=== PATIENT | female | born 1930 | race Caucasian/White ===

== ENCOUNTER 2017-01-16 20:33 | Observation (INO) | payer MEDICARE, BC ==
[2017-01-16] MEDS ORDERED: Sodium Chloride 0.9% 1,000 ML IV SCH (23:00)
--- NOTE | 2017-01-16 23:48 | EDM.PDOC ---
ED HPI GENERAL MEDICAL PROBLEM - General Chief Complaint: General Stated Complaint: NAUSEA Time Seen by Provider: 01/16/17 21:20 Source of Information: Reports: Patient - History of Present Illness INITIAL COMMENTS - FREE TEXT/NARRATIVE: This is an 86yo F with concerns of profuse diarrhea the past day. She states she has gone to the bathroom more than 10 times. Patient states she feels exhausted and dehydrated. Patient denies having these symptoms in the past. Patient denies other health concerns or recent issues with her health. Onset: Sudden Duration: Day(s): (1), Improving Location: Reports: Abdomen Severity: Moderate Improves with: Reports: None Worsens with: Reports: None Associated Symptoms: Reports: Loss of Appetite, Nausea/Vomiting - Related Data Allergies Allergy/AdvReac Type Severity Reaction Status Date / Time amoxicillin [From Augmentin] Allergy Hallucinati Verified 01/16/17 22:25 ons clavulanic acid Allergy Hallucinati Verified 01/16/17 22:25 [From Augmentin] ons levofloxacin Allergy Hives Verified 01/16/17 22:25 morphine Allergy Hives Verified 01/16/17 22:25 Penicillins Allergy Hives Verified 01/16/17 22:25 Sulfa (Sulfonamide Allergy Hives Verified 01/16/17 22:25 Antibiotics) Home Meds: Home Meds Diltiazem HCl [Diltiazem 24Hr Cd] 120 mg PO DAILY 04/22/14 [History] Docusate Sodium 200 mg PO DAILY 04/22/14 [History] Flecainide [Tambocor] 75 mg PO Q12H 04/22/14 [History] Levothyroxine Sodium [Synthroid] 50 mcg PO ACBRK 04/22/14 [History] Lisinopril/Hydrochlorothiazide [Zestoretic 20-12.5 mg Tablet] 1 each PO DAILY [History] Warfarin [Coumadin] 6 mg PO DAILY 04/22/14 [History] busPIRone [Buspar] 5 mg PO DAILY 04/22/14 [History] Fluticasone/Vilanterol [Breo Ellipta 200-25 Mcg INH] 1 each IH DAILY 01/16/17 [ History] Social & Family History - Tobacco Use Smoking Status *Q: Former Smoker Years of Tobacco use: 20 Second Hand Smoke Exposure: No - Alcohol Use Days Per Week of Alcohol Use: 0 - Recreational Drug Use Recreational Drug Use: No ED ROS GENERAL - Review of Systems Review Of Systems: See Below Constitutional: Reports: Decreased Appetite Respiratory: Reports: No Symptoms Cardiovascular: Reports: No Symptoms Endocrine: Reports: Fatigue GI/Abdominal: Reports: Diarrhea, Decreased Appetite, Nausea : Reports: No Symptoms Musculoskeletal: Reports: No Symptoms Skin: Reports: No Symptoms Neurological: Reports: Weakness Psychiatric: Reports: Anxiety ED EXAM, GENERAL - Physical Exam Exam: See Below Exam Limited By: No Limitations General Appearance: Alert, WD/WN, Anxious, Mild Distress, Moderate Distress Eye Exam: Bilateral Eye: EOMI Ears: Normal External Exam Nose: Normal Inspection Throat/Mouth: Normal Inspection, Normal Lips, Normal Oropharynx Head: Atraumatic, Normocephalic Neck: Normal Inspection Respiratory/Chest: No Respiratory Distress, Lungs Clear Cardiovascular: Normal Peripheral Pulses, Regular Rate, Rhythm Peripheral Pulses: 2+: Radial (L), Radial (R), Dorsalis Pedis (L), Dorsalis Pedis (R) GI/Abdominal: Abnormal Bowel Sounds (hyperactive) Extremities: Normal Inspection Neurological: Alert, Oriented Psychiatric: Anxious Skin Exam: Warm, Dry, Intact Course - Vital Signs Last Recorded V/S: Last Vital Signs Temp 36.6 C 01/16/17 22:25 Pulse 68 01/16/17 22:25 Resp 18 01/16/17 22:25 BP 143/53 H 01/16/17 22:25 Pulse Ox 94 L 01/16/17 22:25 - Orders/Labs/Meds Orders: Active Orders 24 hr Category Date Time Status Patient Status [ADT] Routine ADT 01/16/17 21:59 Active Oxygen Therapy [RC] PRN Care 01/16/17 21:59 Active Vital Signs [RC] Q4H Care 01/16/17 21:59 Active GI BACTERIAL PCR PANEL Stat Lab 01/16/17 21:30 Received Labs: Laboratory Tests 01/16/17 01/16/17 01/16/17 Range/Units 21:10 21:10 21:10 WBC 12.5 H D (4.0-11.0) K/uL RBC 4.35 (3.80-5.80) M/uL Hgb 14.1 D (11.5-16.5) g/dL Hct 42.7 D (37.0-47.0) % MCV 98 H (76-96) fL MCH 32.4 H (27.0-32.0) pg MCHC 33.0 (31.0-35.0) g/dL RDW 13.0 (11.0-16.0) % Plt Count 357 D (150-500) K/uL MPV 8.8 (6.0-10.0) fL Neut % (Auto) 76.1 H (45.0-70.0) % Lymph % (Auto) 13.4 L (20.0-40.0) % [place] % (Auto) 9.3 (3.0-10.0) % Eos % (Auto) 1.0 (1.0-5.0) % Baso % (Auto) 0.2 (0.0-0.5) % Neut # (Auto) 9.54 H (2.00-7.50) K/uL Lymph # (Auto) 1.68 (1.50-4.00) K/uL [place] # (Auto) 1.17 H (0.20-0.80) K/uL Eos # (Auto) 0.12 (0.04-0.40) K/uL Baso # (Auto) 0.03 (0.02-0.10) K/uL Sodium 135 L (136-145) mmol/L Potassium 4.7 D (3.5-5.1) mmol/L Chloride 99 (98-107) mmol/L Carbon Dioxide 27.0 (21.0-32.0) mmol/L Anion Gap 13.7 (5.0-15.0) mmol/L BUN 20 D (8-26) mg/dL Creatinine 0.90 D (0.55-1.02) mg/dL Est Cr Clr Drug Dosing TNP Estimated GFR (MDRD) 60 (>60) MLS/MIN BUN/Creatinine Ratio 22.2 (6-25) Glucose 104 H (74-100) mg/dL Calcium 9.9 (8.5-10.1) mg/dL Total Bilirubin 0.7 (0.0-1.0) mg/dL AST 26 (15-37) U/L ALT 19 (12-78) U/L Alkaline Phosphatase 107 (46-116) U/L Troponin I < 0.017 (0.000-0.060) ng/mL Total Protein 7.7 (6.4-8.2) g/dL Albumin 3.5 (3.4-5.0) g/dL Globulin 4.2 (2.2-4.2) g/dL Albumin/Globulin Ratio 0.8 (0.8-2.0) TSH, Ultra Sensitive 5.531 H (0.358-3.740) uIU/mL Urine Color Urine Appearance (CLEAR) Urine pH (5.0-8.0) Ur Specific [place] (1.003-1.030) Urine Protein (NEGATIVE) mg/dL Urine Glucose (UA) (NEGATIVE) mg/dL Urine Ketones (NEGATIVE) mg/dL Urine Occult Blood (NEGATIVE) Urine Nitrite (NEGATIVE) Urine Bilirubin (NEGATIVE) Urine Urobilinogen (0.2-1.0) E.U./dL Ur Leukocyte Esterase (NEGATIVE) Urine RBC /HPF Urine WBC /HPF Ur Epithelial Cells /HPF Urine Bacteria /HPF 01/16/17 Range/Units 21:30 WBC (4.0-11.0) K/uL RBC (3.80-5.80) M/uL Hgb (11.5-16.5) g/dL Hct (37.0-47.0) % MCV (76-96) fL MCH (27.0-32.0) pg MCHC (31.0-35.0) g/dL RDW (11.0-16.0) % Plt Count (150-500) K/uL MPV (6.0-10.0) fL Neut % (Auto) (45.0-70.0) % Lymph % (Auto) (20.0-40.0) % [place] % (Auto) (3.0-10.0) % Eos % (Auto) (1.0-5.0) % Baso % (Auto) (0.0-0.5) % Neut # (Auto) (2.00-7.50) K/uL Lymph # (Auto) (1.50-4.00) K/uL [place] # (Auto) (0.20-0.80) K/uL Eos # (Auto) (0.04-0.40) K/uL Baso # (Auto) (0.02-0.10) K/uL Sodium (136-145) mmol/L Potassium (3.5-5.1) mmol/L Chloride (98-107) mmol/L Carbon Dioxide (21.0-32.0) mmol/L Anion Gap (5.0-15.0) mmol/L BUN (8-26) mg/dL Creatinine (0.55-1.02) mg/dL Est Cr Clr Drug Dosing Estimated GFR (MDRD) (>60) MLS/MIN BUN/Creatinine Ratio (6-25) Glucose (74-100) mg/dL Calcium (8.5-10.1) mg/dL Total Bilirubin (0.0-1.0) mg/dL AST (15-37) U/L ALT (12-78) U/L Alkaline Phosphatase (46-116) U/L Troponin I (0.000-0.060) ng/mL Total Protein (6.4-8.2) g/dL Albumin (3.4-5.0) g/dL Globulin (2.2-4.2) g/dL Albumin/Globulin Ratio (0.8-2.0) TSH, Ultra Sensitive (0.358-3.740) uIU/mL Urine Color Yellow Urine Appearance Slightly cloudy (CLEAR) Urine pH 5.5 (5.0-8.0) Ur Specific [place] 1.025 (1.003-1.030) Urine Protein 30 H (NEGATIVE) mg/dL Urine Glucose (UA) Negative (NEGATIVE) mg/dL Urine Ketones Trace H (NEGATIVE) mg/dL Urine Occult Blood Small H (NEGATIVE) Urine Nitrite Negative (NEGATIVE) Urine Bilirubin Small H (NEGATIVE) Urine Urobilinogen 0.2 (0.2-1.0) E.U./dL Ur Leukocyte Esterase Small H (NEGATIVE) Urine RBC 5-10 H /HPF Urine WBC 10-20 H /HPF Ur Epithelial Cells Many /HPF Urine Bacteria Many H /HPF Departure - Departure Time of Disposition: 21:45 Disposition: Refer to Observation Condition: good Clinical Impression: Dehydration symptoms Diarrhea Qualifiers: Diarrhea type: presumed infectious Qualified Code(s): A09 - Infectious gastroenteritis and colitis, unspecified - Discharge Information - Problem List & Annotations (1) Dehydration symptoms SNOMED Code(s): 5220708 Code(s): R63.8 - OTHER SYMPTOMS AND SIGNS CONCERNING FOOD AND FLUID INTAKE Status: Acute Current Visit: Yes (2) Diarrhea SNOMED Code(s): 41780464 Code(s): R19.7 - DIARRHEA, UNSPECIFIED Status: Acute Current Visit: Yes Qualifiers: Diarrhea type: presumed infectious Qualified Code(s): A09 - Infectious gastroenteritis and colitis, unspecified - Problem List Review Problem List Initiated/Reviewed/Updated: Yes - My Orders Last 24 Hours: My Active Orders 01/16/17 21:30 GI BACTERIAL PCR PANEL Stat 01/16/17 21:59 Patient Status [ADT] Routine Oxygen Therapy [RC] PRN Vital Signs [RC] Q4H - Assessment/Plan Last 24 Hours: My Active Orders 01/16/17 21:30 GI BACTERIAL PCR PANEL Stat 01/16/17 21:59 Patient Status [ADT] Routine Oxygen Therapy [RC] PRN Vital Signs [RC] Q4H Plan: Patient placed in observation for fluid hydration. Patient counseled and agrees with plan. Discussed lab results and reassured. Patient has already felt improvement with minor fluid resuscitation.
[2017-01-17 05:38] VITALS: BP 137/63
--- NOTE | 2017-01-17 08:21 | PCM.DCSUM1 ---
Discharge Summary - Discharge Data Discharge Date: 01/17/17 Discharge Disposition: Home, Self-Care 01 Condition: Fair - Discharge Diagnosis/Problem(s) (1) Dehydration symptoms SNOMED Code(s): 0305877 ICD Code: R63.8 - OTHER SYMPTOMS AND SIGNS CONCERNING FOOD AND FLUID INTAKE Status: Acute Current Visit: Yes (2) Diarrhea SNOMED Code(s): 86160565 ICD Code: R19.7 - DIARRHEA, UNSPECIFIED Status: Acute Current Visit: Yes Qualifiers: Diarrhea type: presumed infectious Qualified Code(s): A09 - Infectious gastroenteritis and colitis, unspecified - Patient Instructions Diet: Usual Diet as Tolerated Activity: As Tolerated Driving: Do Not Drive - Discharge Plan Home Medications: Home Meds Diltiazem HCl [Diltiazem 24Hr Cd] 120 mg PO DAILY 04/22/14 [History] Docusate Sodium 200 mg PO DAILY 04/22/14 [History] Flecainide [Tambocor] 75 mg PO Q12H 04/22/14 [History] Levothyroxine Sodium [Synthroid] 50 mcg PO ACBRK 04/22/14 [History] Lisinopril/Hydrochlorothiazide [Zestoretic 20-12.5 mg Tablet] 1 each PO DAILY [History] Warfarin [Coumadin] 6 mg PO DAILY 04/22/14 [History] busPIRone [Buspar] 5 mg PO DAILY 04/22/14 [History] Fluticasone/Vilanterol [Breo Ellipta 200-25 Mcg INH] 1 each IH DAILY 01/16/17 [ History] Forms: ED Department Discharge Referrals: PCP,None [Primary Care Provider] - - Discharge Summary/Plan Comment Discharge Summary/Plan Comment: Patient counseled on follow up with PCP this week. Discussed close monitoring and f/u in ER or clinic if symptoms return. We will f/u stool studies and inform patient or send out results via mail. Patient to also f/u and call if she has not receive her stool results. - Patient Data Vitals - Most Recent: Last Vital Signs Temp 37.6 C 01/17/17 05:37 Pulse 67 01/17/17 05:37 Resp 18 01/17/17 05:37 BP 137/63 01/17/17 05:37 Pulse Ox 94 L 01/16/17 22:25 Weight - Most Recent: 47.854 kg I&O - Last 24 hours: Intake & Output 01/16/17 01/17/17 01/17/17 22:59 06:59 14:59 Intake Total 1175 Output Total 200 Balance 975 Med Orders - Current: Current Medications Discontinued Medications Sodium Chloride (Normal Saline) 1,000 mls @ 150 mls/hr IV ASDIRECTED STEVEN Stop: 01/17/17 05:39 Last Admin: 01/16/17 23:10 Dose: 150 mls/hr *Q Meaningful Use (DIS) - VTE *Q VTE Criteria *Q: - Stroke *Q Stroke Criteria *Q: - AMI *Q AMI Criteria *Q:
[2017-01-21 23:05] LABS: CAMPYLOBACTER (by PCR) Negative (NEG); SALMONELLA SPECIES (by PCR) Negative (NEG); SHIG OR ENTEROPATH ECOLI (PCR) Negative (NEG); SHIGA TOXIN PRODUC ECOLI (PCR) Negative (NEG)
== END 2017-01-17 09:07 | disposition home or self-care (01) ==
LOC: LB.ED 20:33 → LB.MS 22:00
PROVIDERS: ADMIT Family Medicine; ATTEND Family Medicine
DX: R63.8 Other symptoms and signs concerning food and fluid intake (principal); R19.7 Diarrhea, unspecified; A09 Infectious gastroenteritis and colitis, unspecified; Z88.0 Allergy status to penicillin; Z88.1 Allergy status to other antibiotic agents; Z88.2 Allergy status to sulfonamides; Z88.8 Allergy status to other drugs, medicaments and biological substances; Z79.01 Long term (current) use of anticoagulants; Z79.899 Other long term (current) drug therapy; Z87.891 Personal history of nicotine dependence
CPT/HCPCS: 36415; 80053; 81001; 84443; 84484; 85025; 87493; 87505; 93005; 99285; J7040; 99217; 99219; G0378